=== PATIENT | male | born 1965 | race African-American/Black ===

== ENCOUNTER 2017-08-12 13:58 | Observation (INO) | payer OTHER ==
[~2017-08-12] VITALS: Ht 195.6 cm; Wt 117.5 kg
[2017-08-12] MEDS ORDERED: PRAZOSIN HYDROCH2 MG PO (14:24)
[2017-08-12] MEDS ORDERED: NAPROSYN500 MG PO (14:24)
[2017-08-12] MEDS ORDERED: ATORVASTATIN CA40 M1 PO (14:24)
[2017-08-12] MEDS ORDERED: MIRTAZAPINE45 M1 PO (14:24)
[2017-08-12] MEDS ORDERED: VIS50 PO (14:25)
[2017-08-12] MEDS ORDERED: LISINOPRIL2.5 MG PO (14:26)
[2017-08-12] MEDS ORDERED: BAYER ASPIRIN R81 MG PO (14:26)
[2017-08-12] MEDS ORDERED: METFORMIN HCL1000 MG PO (14:26)
[2017-08-12] MEDS ORDERED: HUMULIN R100 U/1 M1 SQ (14:27)
[2017-08-12] MEDS ORDERED: LANTUS SOLOS100 U/M1 SQ (14:27)
[2017-08-12 14:41] LABS: CARBON DIOXIDE 28.9 mmol/L (21-32); CHLORIDE SERUM 104 mmol/L (98-107); GFR1 > 60 mL/min; GLUCOSE SERUM 181 mg/dL (74-106); POTASSIUM SERUM 4.3 mmol/L (3.5-5.1); SODIUM SERUM 137 mmol/L (136-145)
[2017-08-12 14:44] LABS: BASOPHIL % 0.4 % (0-2); PLATELET COUNT 267 x10^3mcL (130-400); RED CELL DISTRIBUTION WIDTH 12.9 % (11.5-14.5)
[2017-08-12 14:46] LABS: ALBUMIN 3.9 g/dL (3.4-5.0); ALKALINE PHOSPHATASE 72 U/L (46-116); ALT/SGPT 33 U/L (16-63); AST/SGOT 21 U/L (15-37); BILIRUBIN TOTAL 0.2 mg/dL (0.20-1.00); TOTAL PROTEIN, SERUM 6.9 g/dL (6.4-8.2)
[2017-08-12 16:28] VITALS: BP 128/82
[2017-08-12 17:09] LABS: MAGNESIUM 1.7 mg/dL (1.8-2.4)
[2017-08-12 17:14] LABS: CHOLESTEROL/HDL RATIO 3.1
[2017-08-12 18:26] VITALS: Ht 195.6 cm; Wt 117.5 kg
[2017-08-12 21:00] VITALS: BP 114/68
[2017-08-12 23:53] LABS: microscopic required? NO
[2017-08-13 00:49] LABS: AMPHETAMINE QUAL UR NONE DETECTED (NEG <=1000)
[2017-08-13 00:53] LABS: UA SPECIFIC GRAVITY 1.015 (1.005-1.035); urine erythrocyte NEGATIVE (NEGATIVE)
[2017-08-13 05:46] VITALS: BP 103/61
[2017-08-13 06:02] LABS: BASOPHIL % 0.4 % (0-2); PLATELET COUNT 253 x10^3mcL (130-400); RED CELL DISTRIBUTION WIDTH 13.5 % (11.5-14.5)
[2017-08-13 06:39] LABS: CALCIUM 8.8 mg/dL (8.5-10.1); CARBON DIOXIDE 28.8 mmol/L (21-32); CHLORIDE SERUM 105 mmol/L (98-107); CREATININE SERUM 1.1 mg/dL (0.7-1.3); GFR1 > 60 mL/min; GLUCOSE SERUM 112 mg/dL (74-106); POTASSIUM SERUM 4.2 mmol/L (3.5-5.1); SODIUM SERUM 138 mmol/L (136-145)
[2017-08-13 08:56] VITALS: BP 104/62
[2017-08-13 13:47] VITALS: BP 102/58
== END 2017-08-13 18:47 | disposition other institution (70) | DRG 303 ==
LOC: ED 13:58 → DU 15:09
PROVIDERS: Emergency Medicine; Internal Medicine
DX: I25.119 Atherosclerotic heart disease of native coronary artery with unspecified angina pectoris (principal); I10 Essential (primary) hypertension; E11.9 Type 2 diabetes mellitus without complications; Z79.4 Long term (current) use of insulin; Z79.82 Long term (current) use of aspirin; Z68.30 Body mass index [BMI] 30.0-30.9, adult
CPT/HCPCS: 82962; 83880; A9500; G0378; J1815; J2785; Q0092